=== PATIENT | male | born 1955 | race Caucasian/White ===

== ENCOUNTER 2016-11-20 21:27 | Inpatient (IN) | payer OTHER ==
[~2016-11-20] VITALS: Ht 167.6 cm; Wt 109.0 kg
[2016-11-20 21:29] VITALS: O2SAT 95
[2016-11-20] MEDS ORDERED: IOHEXOL 350 MG/ML 10 ML VIAL (for RAD DIAG) IV ONE (21:51)
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
[2016-11-20 21:59] LABS: AUTOMATED NEUTROPHIL # 4.4 TH/MM3 (1.8-7.7); BASOPHIL # 0.1 TH/MM3 (0-0.2); BASOPHIL % 1.1 % (0.0-2.0); EOSINOPHIL # 0.4 TH/MM3 (0-0.4); EOSINOPHIL % 5.4 % (0.0-4.0); HEMATOCRIT 43.4 % (39.0-51.0); HEMO FLAGS DIFF FINAL; LYMPH % 32.1 % (9.0-44.0); LYMPHOCYTE # 2.6 TH/MM3 (1.0-4.8); MEAN CELL VOLUME 91.4 FL (80.0-100.0); MEAN CORPUSCULAR HEMOGLOBIN 31.2 PG (27.0-34.0); MEAN CORPUSCULAR HGB CONC 34.1 % (32.0-36.0); MONO % 6.8 % (0.0-8.0); NEUT % 54.6 % (16.0-70.0); PLATELET COUNT 296 TH/MM3 (150-450); RED BLOOD COUNT 4.74 MIL/MM3 (4.50-5.90); RED CELL DISTRIBUTION WIDTH 13.4 % (11.6-17.2); WHITE BLOOD COUNT 8.1 TH/MM3 (4.0-11.0)
[2016-11-20 22:00] LABS: I-STAT POTASSIUM 3.7 MMOL/L (3.5-4.9); I-STAT SODIUM 141 MMOL/L (138-146)
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
[2016-11-20 22:03] VITALS: BP 127/71; PULSE 88; RESP 19; O2SAT 96
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
[2016-11-20 22:10] LABS: PROTHROMBIN TIME - PATIENT 10.8 SEC (9.8-11.6)
[2016-11-20] MEDS ORDERED: ONDANSETRON HCL 4 MG/2 ML VIAL IV PRN (22:15)
[2016-11-20] MEDS ORDERED: MORPHINE SULFATE 4 MG/ML INJ IV PUSH PRN (22:15)
[2016-11-20] MEDS ORDERED: ACETAMINOPHEN/HYDROcodone 325 MG/5 MG TAB PO PRN ×2 (22:15)
[2016-11-20] MEDS ORDERED: ENALAPRILAT 1.25 MG/ML VIAL IV PRN (22:15)
[2016-11-20] MEDS ORDERED: SODIUM CHLORIDE 0.9% FLUSH 10 ML FLUSH IV FLUSH PRN (22:15)
[2016-11-20] MEDS ORDERED: MAGNESIUM HYDROXIDE SUSP 30 ML CUP PO PRN (22:15)
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
[2016-11-20 22:30] VITALS: BP 116/63; PULSE 94; RESP 20; O2SAT 97
[2016-11-20] MEDS: PANTOPRAZOLE SODIUM 40 MG VIAL IVP SCH (22:49)
[2016-11-20] MEDS: 1/2 NS + KCL 20 MEQ INJ 1,000 ML IV SCH (22:49)
[2016-11-21] VITALS (13 sets, daily range): BP systolic 102–160; BP diastolic 64–83; PULSE 69–81; RESP 16–26; TEMP 97.5–98.5; O2SAT 92–97
[2016-11-21] MEDS: MULTIVITAMIN INJ 10 ML, THIAMINE INJ 100 MG, FOLIC ACID INJ 1 MG in SODIUM CHLORID 0.9%... IV SCH (00:53)
[2016-11-21] MEDS: HYDROmorphone HCL PF 1 MG/ML VIAL IVP PRN ×2 (00:54→07:53)
[2016-11-21] MEDS ORDERED: ceFAZolin 2 GM PREMIX 50 ML ONE (01:27)
[2016-11-21] MEDS ORDERED: DIPHTH/TETANUS/ACEL PERTUSSIS (BOOSTER) 0.5 ML VIAL/PFS IM ONE (01:27)
[2016-11-21 04:44] LABS: AUTOMATED NEUTROPHIL # 7.8 TH/MM3 (1.8-7.7); BASOPHIL # 0.1 TH/MM3 (0-0.2); BASOPHIL % 0.5 % (0.0-2.0); EOSINOPHIL # 0.2 TH/MM3 (0-0.4); HEMATOCRIT 41.4 % (39.0-51.0); HEMO FLAGS DIFF FINAL; LYMPH % 15.6 % (9.0-44.0); LYMPHOCYTE # 1.6 TH/MM3 (1.0-4.8); MEAN CORPUSCULAR HGB CONC 32.7 % (32.0-36.0); NEUT % 73.9 % (16.0-70.0); PLATELET COUNT 243 TH/MM3 (150-450); RED BLOOD COUNT 4.35 MIL/MM3 (4.50-5.90); RED CELL DISTRIBUTION WIDTH 13.5 % (11.6-17.2); WHITE BLOOD COUNT 10.6 TH/MM3 (4.0-11.0)
[2016-11-21 05:18] LABS: ALT (GPT) 119 U/L (12-78); ANION GAP 11 MEQ/L (5-15); AST (GOT) 92 U/L (15-37); BICARBONATE 20.9 MEQ/L (21.0-32.0); BLOOD UREA NITROGEN 8 MG/DL (7-18); CHLORIDE 108 MEQ/L (98-107); GLOMERULAR FILTRATION RATE 64 ML/MIN (>89); POTASSIUM 4.5 MEQ/L (3.5-5.1); SODIUM (NA) 140 MEQ/L (136-145)
[2016-11-21 05:21] LABS: ALKALINE PHOSPHATASE 65 U/L (45-117); TOTAL BILIRUBIN ADULT 0.3 MG/DL (0.2-1.0)
[2016-11-21] MEDS: CYCLOBENZAPRINE HCL 10 MG TAB PO SCH ×3 (05:32→20:36)
[2016-11-21] MEDS: 1/2 NS + KCL 20 MEQ INJ 1,000 ML IV SCH ×2 (07:35→18:15)
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
[2016-11-21] MEDS: LIDOCAINE HCL 5% PATCH T-DERMAL SCH (08:00)
[2016-11-21] MEDS: BACITRACIN TOP OINT 15 GM TUBE TOP SCH ×2 (08:00→19:57)
[2016-11-21] MEDS: DOCUSATE SODIUM 100 MG CAP PO SCH ×2 (08:00→19:57)
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
[2016-11-21] MEDS: KETOROLAC TROMETHAMINE 30 MG/ML (IVP) VIAL IV PUSH SCH ×2 (11:29→17:15)
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
[2016-11-21] MEDS ORDERED: oxyCODONE/ACETAMINOPHEN 5 MG/325 MG TAB PO PRN (15:00)
[2016-11-21] MEDS: REMOVE OLD LIDOCAINE PATCH T-DERMAL SCH (19:57)
[2016-11-21] MEDS ORDERED: MAGN400S PO (20:27)
[2016-11-21] MEDS ORDERED: DOCU1CAP39 PO (20:27)
[2016-11-21] MEDS: PANTOPRAZOLE SODIUM 40 MG VIAL IVP SCH (20:36)
[2016-11-22] VITALS (9 sets, daily range): BP systolic 103–122; BP diastolic 66–73; PULSE 67–81; RESP 19–26; TEMP 96.9–98.4; O2SAT 95–98
[2016-11-22] MEDS: MULTIVITAMIN INJ 10 ML, THIAMINE INJ 100 MG, FOLIC ACID INJ 1 MG in SODIUM CHLORID 0.9%... IV SCH (01:11)
[2016-11-22] MEDS: KETOROLAC TROMETHAMINE 30 MG/ML (IVP) VIAL IV PUSH SCH ×4 (01:11→16:18)
--- NOTE | 2016-11-22 03:29 | RADRPT ---
EXAM DATE/TIME: 11/22/2016 02:50 [facility] COMPARISON: CT THORAX W CONTRAST, November 20, 2016, 21:49. CHEST SINGLE AP, November 20, 2016, 21:21. INDICATIONS : Rib pain. Short of breath. MEDICAL HISTORY : None. SURGICAL HISTORY : None. ENCOUNTER: Subsequent ACUITY: 2 days PAIN SCORE: 1/10 LOCATION: Bilateral chest FINDINGS: Interval development of subsegmental areas of consolidation in the lower left lung causing loss of de lineation of a portion of the lateral left hemidiaphragm and with air bronchograms the retrocardiac r egion. The right lung is clear. Multiple right healed posterior rib fractures; CT has demonstrated acute fractures the anterior ribs which are not discernible on chest x-ray.. No evidence of pneumoth orax. CONCLUSION: Interval development of patchy areas of consolidation left lower lung. Dandy La MD on November 22, 2016 at 3:25 Board Certified Radiologist. This report was verified electronically.
[2016-11-22 04:49] LABS: AUTOMATED NEUTROPHIL # 5.2 TH/MM3 (1.8-7.7); BASOPHIL # 0.1 TH/MM3 (0-0.2); BASOPHIL % 0.7 % (0.0-2.0); EOSINOPHIL # 0.4 TH/MM3 (0-0.4); EOSINOPHIL % 5.8 % (0.0-4.0); HEMATOCRIT 38.2 % (39.0-51.0); HEMO FLAGS DIFF FINAL; LYMPH % 13.9 % (9.0-44.0); MEAN CELL VOLUME 93.3 FL (80.0-100.0); MEAN CORPUSCULAR HEMOGLOBIN 31.7 PG (27.0-34.0); MEAN CORPUSCULAR HGB CONC 33.9 % (32.0-36.0); MONO % 8.4 % (0.0-8.0); NEUT % 71.2 % (16.0-70.0); PLATELET COUNT 193 TH/MM3 (150-450); RED CELL DISTRIBUTION WIDTH 13.3 % (11.6-17.2); WHITE BLOOD COUNT 7.3 TH/MM3 (4.0-11.0)
[2016-11-22 05:17] LABS: ALT (GPT) 76 U/L (12-78); ANION GAP 6 MEQ/L (5-15); AST (GOT) 30 U/L (15-37); BICARBONATE 29.1 MEQ/L (21.0-32.0); BLOOD UREA NITROGEN 13 MG/DL (7-18); CHLORIDE 105 MEQ/L (98-107); GLOMERULAR FILTRATION RATE 73 ML/MIN (>89); POTASSIUM 3.9 MEQ/L (3.5-5.1); SODIUM (NA) 140 MEQ/L (136-145)
[2016-11-22 05:19] LABS: ALKALINE PHOSPHATASE 64 U/L (45-117); TOTAL BILIRUBIN ADULT 0.7 MG/DL (0.2-1.0)
[2016-11-22] MEDS: CYCLOBENZAPRINE HCL 10 MG TAB PO SCH ×3 (05:49→23:17)
[2016-11-22] MEDS: DOCUSATE SODIUM 100 MG CAP PO SCH ×2 (07:42→21:00)
[2016-11-22] MEDS: BACITRACIN TOP OINT 15 GM TUBE TOP SCH ×2 (07:42→21:00)
[2016-11-22] MEDS: LIDOCAINE HCL 5% PATCH T-DERMAL SCH (07:42)
--- NOTE | 2016-11-22 07:48 | EKG ---
Date Performed: 11/20/2016 Time Performed: 22:06:34 PTAGE: 89 years EKG: Sinus rhythm MARKED LEFT AXIS DEVIATION MODERATE INTRAVENTRICULAR CONDUCTION DELAY NONSPECIFIC T-WAVE ABNORMALITY ABNORMAL ECG INTERPRETATION BASED ON A DEFAULT AGE OF 41 YEARS NO PREVIOUS TRACING DOCTOR: Massimo Shirley Interpretating Date/Time 11/22/2016 07:45:13
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
[2016-11-22] MEDS: ENOXAPARIN SODIUM 30 MG/0.3 ML SYRINGE SQ SCH ×2 (11:19→23:17)
[2016-11-22] MEDS: HYDROmorphone HCL PF 1 MG/ML VIAL IVP PRN ×2 (18:46→23:26)
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
[2016-11-22] MEDS: REMOVE OLD LIDOCAINE PATCH T-DERMAL SCH (21:00)
[2016-11-22] MEDS: MORPHINE SULFATE 4 MG/ML INJ IV PUSH PRN (21:22)
[2016-11-22] MEDS: PANTOPRAZOLE SODIUM 40 MG VIAL IVP SCH (23:17)
[2016-11-23] VITALS (7 sets, daily range): BP systolic 104–182; BP diastolic 69–79; PULSE 72–83; RESP 16–20; TEMP 96.4–97.8; O2SAT 92–98
[2016-11-23] MEDS: KETOROLAC TROMETHAMINE 30 MG/ML (IVP) VIAL IV PUSH SCH ×4 (00:56→17:15)
[2016-11-23] MEDS: MULTIVITAMIN INJ 10 ML, THIAMINE INJ 100 MG, FOLIC ACID INJ 1 MG in SODIUM CHLORID 0.9%... IV SCH (00:56)
[2016-11-23] MEDS: MORPHINE SULFATE 4 MG/ML INJ IV PUSH PRN ×5 (04:06→22:22)
[2016-11-23] MEDS: CYCLOBENZAPRINE HCL 10 MG TAB PO SCH (05:10)
--- NOTE | 2016-11-23 06:46 | RADRPT ---
EXAM DATE/TIME: 11/23/2016 05:33 [facility] COMPARISON: CHEST SINGLE AP, November 22, 2016, 2:50. INDICATIONS : Chest pain. MEDICAL HISTORY : None. SURGICAL HISTORY : None. ENCOUNTER: Subsequent ACUITY: 3 days PAIN SCORE: 8/10 LOCATION: Bilateral chest FINDINGS: Patchy infiltrates in the left lower lung are similar in appearance compared to yesterday's chest x-r ay. Right lung is clear for the heart is stable in size. CONCLUSION: Persistent left lower lobe patchy infiltrates. Dandy La MD on November 23, 2016 at 6:44 Board Certified Radiologist. This report was verified electronically.
[2016-11-23] MEDS: DOCUSATE SODIUM 100 MG CAP PO SCH (08:22)
[2016-11-23] MEDS: HYDROmorphone HCL PF 1 MG/ML VIAL IVP PRN ×3 (10:55→21:04)
[2016-11-23] MEDS: ENOXAPARIN SODIUM 30 MG/0.3 ML SYRINGE SQ SCH ×2 (10:55→22:22)
[2016-11-23] MEDS: BACITRACIN TOP OINT 15 GM TUBE TOP SCH ×2 (10:56→22:26)
[2016-11-23] MEDS: LIDOCAINE HCL 5% PATCH T-DERMAL SCH (10:57)
[2016-11-23] MEDS ORDERED: ENOXAPARIN SODIUM 30 MG/0.3 ML SYRINGE SQ SCH (11:45)
[2016-11-23] MEDS ORDERED: LACTULOSE SYRUP 20 GM/30 ML CUP PO ONE (11:45)
[2016-11-23] MEDS ORDERED: RESP: ALBUTEROL 2.5 MG/IPRATROPIUM 0.5 MG NEB (PRN) NEB (11:45)
[2016-11-23] MEDS ORDERED: LIDOCAINE HCL 5% PATCH T-DERMAL SCH (11:45)
--- NOTE | 2016-11-23 12:47 | HHI.PR ---
Neuropsych Emotional Emotional: Moderate: Anxious/Fearful Behavior Behavior: Intact: Coping/Acceptance, Cooperative w/ Treatment Cognitive Cognitive: Intact: Cognitive, Attention/Concentration, Confused/Orientation, Insight/Awareness, Judgement/Problem-Solving, Memory Progress Notes/Response to Tx Contents of Sessions: Adjustment Time with Patient: 15 minutes Premorbid psychological status Premorbid Cognitive, Emotional and Behavioral Status: Stable. The patient has high school education and sporadic work history prior to this injury. The patient has no prior psychiatric difficulties, as described above. He is . Substance abuse history includes alcohol dependence. Behavioral Reactions of Patient and Family/Support System: Deferred. There is no family present. Emotional/Behavioral Status of Patient and Family/Support System: Deferred. Pertinent issues, if appropriate to this patients clinical care, are described in detail above. Maximizing acute care outcome It is recommended that the patient be monitored for alcohol withdrawal symptoms as the medical condition evolves. This patients neuropathological challenges may limit their rehabilitation potential going forward, and these challenges will require specialized therapeutic skills to maximize outcome. Anticipated Problems Ongoing areas of concern will include behavioral impulsivity, lack of insight and judgment, which is expected to improve with time and treatment. Presently , the patient is following commands. Treatment Plan This clinician will continue to follow with you throughout the course of this patients rehabilitation treatment, and I will be available to meet with the patients family/support system to facilitate their understanding and the ongoing care of their family member. The goals of neuropsychological intervention shall be both educational and supportive to the family/support system as is deemed clinically appropriate. Impression This patient is at his baseline from a neurocognitive standpoint based on the examination conducted during daily trauma rounds. Diagnosis: (1) Alcohol dependence in controlled environment Status: Acute Progress Note Narrative Ongoing follow-up of patient seen during daily trauma rounds. This is day 3 post injury. The patient is stable but complaining of significant abdominal pain. Otherwise from a neurobehavioral standpoint, he is stable. I will continue to follow. Young Marcos PhD Nov 23, 2016 12:47 pm
[2016-11-23] MEDS: RESP: ALBUTEROL 2.5 MG/IPRATROPIUM 0.5 MG NEB (SCH) NEB ×2 (13:52→20:00)
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
[2016-11-23] MEDS: fentaNYL 25 MCG/HR PATCH T-DERMAL SCH (14:43)
[2016-11-23] MEDS: METHOCARBAMOL 500 MG TAB PO SCH ×2 (14:44→22:22)
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
[2016-11-23] MEDS: REMOVE OLD LIDOCAINE PATCH T-DERMAL SCH (21:00)
[2016-11-23] MEDS: DOCUSATE SODIUM 50 MG/SENNA 8.6 MG TAB PO SCH (22:20)
[2016-11-23] MEDS: FAMOTIDINE 20 MG TAB PO SCH (22:20)
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
[2016-11-24] VITALS (7 sets, daily range): BP systolic 105–141; BP diastolic 61–91; PULSE 81–103; RESP 16–21; TEMP 96.4–98.1; O2SAT 92–96
[2016-11-24] MEDS: KETOROLAC TROMETHAMINE 30 MG/ML (IVP) VIAL IV PUSH SCH ×5 (00:51→23:55)
[2016-11-24] MEDS: MORPHINE SULFATE 4 MG/ML INJ IV PUSH PRN (05:35)
[2016-11-24] MEDS: METHOCARBAMOL 500 MG TAB PO SCH ×3 (05:38→20:28)
[2016-11-24 06:33] LABS: AUTOMATED NEUTROPHIL # 4.9 TH/MM3 (1.8-7.7); BASOPHIL % 0.6 % (0.0-2.0); EOSINOPHIL # 0.4 TH/MM3 (0-0.4); EOSINOPHIL % 5.9 % (0.0-4.0); HEMATOCRIT 38.1 % (39.0-51.0); HEMO FLAGS DIFF FINAL; LYMPH % 13.6 % (9.0-44.0); LYMPHOCYTE # 0.9 TH/MM3 (1.0-4.8); MEAN CELL VOLUME 92.7 FL (80.0-100.0); MEAN CORPUSCULAR HGB CONC 34.5 % (32.0-36.0); MONO % 8.7 % (0.0-8.0); NEUT % 71.2 % (16.0-70.0); PLATELET COUNT 188 TH/MM3 (150-450); RED BLOOD COUNT 4.11 MIL/MM3 (4.50-5.90); RED CELL DISTRIBUTION WIDTH 13.4 % (11.6-17.2); WHITE BLOOD COUNT 6.9 TH/MM3 (4.0-11.0)
[2016-11-24 06:50] LABS: ANION GAP 7 MEQ/L (5-15); AST (GOT) 21 U/L (15-37); BLOOD UREA NITROGEN 20 MG/DL (7-18); CHLORIDE 103 MEQ/L (98-107); GLOMERULAR FILTRATION RATE 75 ML/MIN (>89); SODIUM (NA) 137 MEQ/L (136-145)
[2016-11-24 06:51] LABS: ALT (GPT) 48 U/L (12-78)
[2016-11-24 06:53] LABS: ALKALINE PHOSPHATASE 67 U/L (45-117); TOTAL BILIRUBIN ADULT 0.6 MG/DL (0.2-1.0)
[2016-11-24] MEDS: RESP: ALBUTEROL 2.5 MG/IPRATROPIUM 0.5 MG NEB (SCH) NEB ×3 (08:39→19:51)
[2016-11-24] MEDS: FAMOTIDINE 20 MG TAB PO SCH ×2 (09:47→20:28)
[2016-11-24] MEDS: LACTULOSE SYRUP 20 GM/30 ML CUP PO SCH (09:47)
[2016-11-24] MEDS: HYDROmorphone HCL PF 1 MG/ML VIAL IVP PRN ×3 (09:48→20:27)
[2016-11-24] MEDS: DOCUSATE SODIUM 50 MG/SENNA 8.6 MG TAB PO SCH ×2 (09:48→20:28)
[2016-11-24] MEDS: ENOXAPARIN SODIUM 30 MG/0.3 ML SYRINGE SQ SCH ×2 (09:48→20:28)
[2016-11-24] MEDS: BACITRACIN TOP OINT 15 GM TUBE TOP SCH ×2 (09:56→20:29)
[2016-11-24] MEDS: LIDOCAINE HCL 5% PATCH T-DERMAL SCH (10:00)
--- NOTE | 2016-11-24 11:18 | HHI.PR ---
Neuropsych Behavior Behavior: Intact: Behavior, Coping/Acceptance, Cooperative w/ Treatment, Motivation Cognitive Cognitive: Intact: Cognitive, Attention/Concentration, Confused/Orientation, Insight/Awareness, Judgement/Problem-Solving, Memory Psychosocial Psychosocial: Intact: Psychosocial, Family/Other Adjustment, Realistic Expectation, Self-Esteem/Confidence Progress Notes/Response to Tx Contents of Sessions: Adjustment, Level of Consciousness Time with Patient: 15 minutes Premorbid psychological status Premorbid Cognitive, Emotional and Behavioral Status: Stable. The patient has high school education and sporadic work history prior to this injury. The patient has no prior psychiatric difficulties, as described above. He is . Substance abuse history includes alcohol dependence. Behavioral Reactions of Patient and Family/Support System: Deferred. There is no family present. Emotional/Behavioral Status of Patient and Family/Support System: Deferred. Pertinent issues, if appropriate to this patients clinical care, are described in detail above. Maximizing acute care outcome It is recommended that the patient be monitored for alcohol withdrawal symptoms as the medical condition evolves. This patients neuropathological challenges may limit their rehabilitation potential going forward, and these challenges will require specialized therapeutic skills to maximize outcome. Anticipated Problems Ongoing areas of concern will include behavioral impulsivity, lack of insight and judgment, which is expected to improve with time and treatment. Presently , the patient is following commands. Treatment Plan This clinician will continue to follow with you throughout the course of this patients rehabilitation treatment, and I will be available to meet with the patients family/support system to facilitate their understanding and the ongoing care of their family member. The goals of neuropsychological intervention shall be both educational and supportive to the family/support system as is deemed clinically appropriate. Impression This patient is at his baseline from a neurocognitive standpoint based on the examination conducted during daily trauma rounds. Diagnosis: (1) Alcohol dependence in controlled environment Status: Resolved Progress Note Narrative Ongoing follow-up of patient seen during daily trauma rounds. This is day 4 post injury. The patient continues to complain of abdominal and rib pain, but neurocognitively he is intact. He has not demonstrated any signs of ETOH withdrawal, but is day 4. I will continue to follow. Young Marcos PhD Nov 24, 2016 11:18
[2016-11-24] MEDS: GABAPENTIN 400 MG CAP PO SCH ×2 (11:48→17:11)
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
[2016-11-24] MEDS ORDERED: MAGNESIUM CITRATE SOLN 300 ML BTL PO ONE (13:45)
--- NOTE | 2016-11-24 15:28 | RADRPT ---
EXAM DATE/TIME: 11/24/2016 14:08 [facility] COMPARISON: HAND LEFT COMPLETE ([id number]), November 21, 2016, 12:20. INDICATIONS : Evaluate left thumb ulnar collateral ligament, pain. MEDICAL HISTORY : Bilateral PE, Pericardial effusion, SURGICAL HISTORY : Appendectomy. Tonsillectomy. Knee sx. ENCOUNTER: Initial ACUITY: 2 day PAIN SCORE: 6/10 LOCATION: thumb region. TECHNIQUE: Multiplanar, multisequence MRI examination was performed without contrast. FINDINGS: There is moderate osteoarthritis of the first carpometacarpal joint and moderate to severe osteoarthr itis of the first metacarpal phalangeal joint. Head of the metacarpal and base of the proximal phalan x are both considerably irregular, including the subchondral regions. There may have been an old frac ture of the proximal phalangeal base. A potential subacute fracture is seen of the volar corner of th e bone but nondisplaced. There is moderately intense marrow edema in the proximal third of the proxim al phalanx but whether this is reactive or indicative of a subacute fracture or a combination of the two is uncertain. In any event, no evidence of a displaced or unstable appearing fracture fragment. The first MCP collateral ligaments are quite clearly intact. However, considerable edema and/or hemorrhage is seen in the thenar musculature compatible with strain, especially flexor pollicis brevi s. No fluid-filled gap demonstrated. CONCLUSION: 1. Thenar strain without perceptible tear, especially flexor pollicis brevis. 2. Intact collateral ligaments. 3. Moderate to severe first MCP osteoarthritis with potential acute or subacute on chronic fracturing of the proximal phalangeal base. No displaced fracture. 4. Moderate, typical appearing osteoarthritis of the first carpometacarpal joint. Mohinder Watkins MD on November 24, 2016 at 15:20 Board Certified Radiologist. This report was verified electronically.
[2016-11-24] MEDS: oxyCODONE/ACETAMINOPHEN 10 MG/325 MG TAB PO PRN (17:15)
[2016-11-24] MEDS: REMOVE OLD LIDOCAINE PATCH T-DERMAL SCH (20:29)
[2016-11-25] VITALS (9 sets, daily range): BP systolic 119–152; BP diastolic 76–86; PULSE 101–108; RESP 19–24; TEMP 97.1–98.6; O2SAT 92–97
[2016-11-25] MEDS: METHOCARBAMOL 500 MG TAB PO SCH ×3 (05:31→20:31)
[2016-11-25] MEDS: KETOROLAC TROMETHAMINE 30 MG/ML (IVP) VIAL IV PUSH SCH ×4 (05:31→23:53)
[2016-11-25] MEDS: oxyCODONE/ACETAMINOPHEN 10 MG/325 MG TAB PO PRN ×3 (06:34→20:25)
[2016-11-25] MEDS: ENOXAPARIN SODIUM 30 MG/0.3 ML SYRINGE SQ SCH ×2 (08:08→20:31)
[2016-11-25] MEDS: FAMOTIDINE 20 MG TAB PO SCH ×2 (08:08→20:26)
[2016-11-25] MEDS: GABAPENTIN 400 MG CAP PO SCH ×3 (08:08→18:56)
[2016-11-25] MEDS: LIDOCAINE HCL 5% PATCH T-DERMAL SCH (08:09)
[2016-11-25] MEDS: HYDROmorphone HCL PF 1 MG/ML VIAL IVP PRN ×3 (08:09→23:57)
[2016-11-25] MEDS: DOCUSATE SODIUM 50 MG/SENNA 8.6 MG TAB PO SCH ×2 (08:10→20:26)
[2016-11-25] MEDS: LACTULOSE SYRUP 20 GM/30 ML CUP PO SCH (08:10)
[2016-11-25] MEDS: BACITRACIN TOP OINT 15 GM TUBE TOP SCH ×2 (08:15→20:31)
--- NOTE | 2016-11-25 10:44 | HHI.PR ---
Neuropsych Emotional Emotional: Mild: Irritable/Angry/Frustrate Behavior Behavior: Intact: Coping/Acceptance, Cooperative w/ Treatment, Motivation Cognitive Cognitive: Intact: Cognitive, Attention/Concentration, Confused/Orientation, Insight/Awareness, Judgement/Problem-Solving, Memory Psychosocial Psychosocial: Intact: Psychosocial, Family/Other Adjustment, Realistic Expectation Progress Notes/Response to Tx Contents of Sessions: Adjustment Time with Patient: 15 minutes Premorbid psychological status Premorbid Cognitive, Emotional and Behavioral Status: Stable. The patient has high school education and sporadic work history prior to this injury. The patient has no prior psychiatric difficulties, as described above. He is . Substance abuse history includes alcohol dependence. Behavioral Reactions of Patient and Family/Support System: Deferred. There is no family present. Emotional/Behavioral Status of Patient and Family/Support System: Deferred. Pertinent issues, if appropriate to this patients clinical care, are described in detail above. Maximizing acute care outcome It is recommended that the patient be monitored for alcohol withdrawal symptoms as the medical condition evolves. This patients neuropathological challenges may limit their rehabilitation potential going forward, and these challenges will require specialized therapeutic skills to maximize outcome. Anticipated Problems Ongoing areas of concern will include behavioral impulsivity, lack of insight and judgment, which is expected to improve with time and treatment. Presently , the patient is following commands. Treatment Plan This clinician will continue to follow with you throughout the course of this patients rehabilitation treatment, and I will be available to meet with the patients family/support system to facilitate their understanding and the ongoing care of their family member. The goals of neuropsychological intervention shall be both educational and supportive to the family/support system as is deemed clinically appropriate. Impression This patient is at his baseline from a neurocognitive standpoint based on the examination conducted during daily trauma rounds. Diagnosis: (1) Alcohol dependence in controlled environment Status: Resolved Progress Note Narrative Ongoing follow-up of patient seen during daily trauma rounds. This is day 5 post injury. The patient continue to complain of pain 2T rib fractures, but is getting OOB and is compliant with treatment. Patient had long discussion with Dr. Mccann, and as a consequence his mood/affect appeared improved. It is anticipated that he will see continued improvements over the next several days in terms of pain. He is passing the window where concerns of ETOH withdrawal issues would emerge. I will continue to follow. Young Marcos PhD Nov 25, 2016 10:44
[2016-11-25] MEDS: RESP: ALBUTEROL 2.5 MG/IPRATROPIUM 0.5 MG NEB (SCH) NEB ×3 (10:49→19:09)
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
[2016-11-25] MEDS: REMOVE OLD LIDOCAINE PATCH T-DERMAL SCH (20:28)
[2016-11-26] VITALS: BP_SYST 107; PULSE 94; RESP 20; TEMP 97.7; O2SAT 98
[2016-11-26] MEDS: METHOCARBAMOL 500 MG TAB PO SCH ×2 (04:46→13:20)
[2016-11-26] MEDS: KETOROLAC TROMETHAMINE 30 MG/ML (IVP) VIAL IV PUSH SCH (04:46)
[2016-11-26] MEDS: oxyCODONE/ACETAMINOPHEN 10 MG/325 MG TAB PO PRN ×2 (04:47→09:27)
[2016-11-26] MEDS: RESP: ALBUTEROL 2.5 MG/IPRATROPIUM 0.5 MG NEB (SCH) NEB (07:26)
[2016-11-26 07:28] VITALS: O2SAT 98
[2016-11-26 08:00] VITALS: BP 119/71; PULSE 96; RESP 13; TEMP 95.9; O2SAT 93
[2016-11-26] MEDS: BACITRACIN TOP OINT 15 GM TUBE TOP SCH (09:00)
[2016-11-26] MEDS: GABAPENTIN 400 MG CAP PO SCH ×2 (09:27→13:20)
[2016-11-26] MEDS: LACTULOSE SYRUP 20 GM/30 ML CUP PO SCH (09:27)
[2016-11-26] MEDS: DOCUSATE SODIUM 50 MG/SENNA 8.6 MG TAB PO SCH (09:27)
[2016-11-26] MEDS: FAMOTIDINE 20 MG TAB PO SCH (09:27)
[2016-11-26] MEDS: ENOXAPARIN SODIUM 30 MG/0.3 ML SYRINGE SQ SCH (09:27)
[2016-11-26] MEDS: LIDOCAINE HCL 5% PATCH T-DERMAL SCH (09:28)
[2016-11-26] MEDS ORDERED: OXYC1TAB36 PO (10:33)
[2016-11-26] MEDS ORDERED: FENT25T T-DERMAL (10:33)
[2016-11-26] MEDS ORDERED: SENN1TAB PO (10:39)
[2016-11-26] MEDS ORDERED: METH500T3 PO (10:39)
[2016-11-26] MEDS ORDERED: LIDO5DIS5 T-DERMAL (10:39)
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
[2016-11-26] MEDS: fentaNYL 25 MCG/HR PATCH T-DERMAL SCH (13:41)
[2016-11-26] MEDS ORDERED: REMOVE OLD DURAGESIC (FENTANYL) PATCH T-DERMAL SCH (14:00)
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
== END 2016-11-26 14:15 | disposition home or self-care (01) | DRG 184 ==
LOC: NEPE 21:27 → NEDA 22:51 → EDBD 22:51 → N03A 11-21 01:12 → N07B 11-22 15:44
PROVIDERS: ADMIT Surgery; ATTEND Surgery
DX: S22.41XA Multiple fractures of ribs, right side, initial encounter for closed fracture (principal); S36.892A Contusion of other intra-abdominal organs, initial encounter; M47.812 Spondylosis without myelopathy or radiculopathy, cervical region; S80.812A Abrasion, left lower leg, initial encounter; S62.515A Nondisplaced fracture of proximal phalanx of left thumb, initial encounter for closed fracture; E66.9 Obesity, unspecified; Z68.38 Body mass index [BMI] 38.0-38.9, adult; F10.229 Alcohol dependence with intoxication, unspecified; Y90.8 Blood alcohol level of 240 mg/100 ml or more; V49.40XA Driver injured in collision with unspecified motor vehicles in traffic accident, initial encounter; Y92.410 Unspecified street and highway as the place of occurrence of the external cause
CPT/HCPCS: 70450; 71010; 71260; 72125; 72170; 73130; 73218; 73590; 74177; 80053; 80307; 82435; 82565; 82947; 83690; 84132; 84295; 84484; 84520; 85025; 85610; 85730; 86850; 86900; 86901; 87641; 90471; 90715; 93005; 94150; 94640; 94664; 94667; 94668; 96374; 96375; 99291; C9113; G0390; J0690; J1170; J1650; J1885; J2270; J3411; J7040; Q9967